=== PATIENT | female | born 1935 | race Caucasian/White ===

== ENCOUNTER 2018-11-10 18:47 | Emergency (ER) | payer MEDICARE ==
[~2018-11-10] VITALS: Ht 165.1 cm; Wt 72.7 kg
[2018-11-10] MEDS ORDERED: QUET25TA PO (19:59)
[2018-11-10] MEDS ORDERED: SEVEC800 PO (19:59)
[2018-11-10] MEDS ORDERED: ATOR40TA28 PO (20:01)
[2018-11-10] MEDS ORDERED: DILT-39 PO (20:01)
[2018-11-10] MEDS ORDERED: ASPI81 PO (20:01)
[2018-11-10] MEDS ORDERED: ACETAMINOPHEN 325 MG TABLET PO ONE (22:00)
[2018-11-10 23:13] LABS: BASOPHILS % (AUTO) 1.1 % (0.0-2.0); EOSINOPHILS % (AUTO) 2.1 % (1.0-6.0); HEMATOCRIT 36.6 % (36-46); HEMOGLOBIN 11.8 g/dL (12.0-16.0); LYMPHOCYTES # (AUTO) 0.6 K/uL (1.0-4.8); LYMPHOCYTES % (AUTO) 9.3 % (22.0-44.0); MEAN CORPUSCULAR HEMOGLOBIN 29.8 pg (26.0-34.0); MEAN CORPUSCULAR HGB CONC 32.2 G/dL (31.0-37.0); MEAN CORPUSCULAR VOLUME 93 fL (80-100); MONOCYTES # (AUTO) 0.6 K/uL (0.1-1.0); MONOCYTES % (AUTO) 8.3 % (2.0-9.0); NEUTROPHILS # (AUTO) 5.3 K/uL (1.8-7.7); NEUTROPHILS % (AUTO) 79.2 % (40.0-70.0); PLATELET COUNT (AUTO) 168 K/uL (150-450); RED BLOOD CELL COUNT(AUTO) 3.95 MIL/uL (4.00-5.20)
[2018-11-10 23:24] LABS: CALCIUM, TOTAL 9.3 mg/dL (8.8-10.5); CREATININE 3.12 mg/dL (0.60-1.30)
[2018-11-10 23:31] LABS: ALBUMIN 3.6 g/dL (3.4-5.0); BILIRUBIN,TOTAL 0.4 mg/dL (0.1-1.0); TOTAL PROTEIN, SERUM 7.3 g/dL (6.4-8.2)
[2018-11-11 00:22] VITALS: BP 142/54
== END 2018-11-11 01:18 | disposition home or self-care (01) ==
LOC: EMS 18:49
DX: M79.602 Pain in left arm (principal); N18.6 End stage renal disease; I50.9 Heart failure, unspecified; F20.9 Schizophrenia, unspecified; Z79.82 Long term (current) use of aspirin

== ENCOUNTER 2019-06-20 06:37 | Inpatient (IN) | payer MEDICARE ==
[~2019-06-20] VITALS: Ht 154.9 cm; Wt 44.1 kg
[~2019-06-20 06:37] MED LIST: ASPI81 PO; ATOR40TA28 PO; DILT-39 PO; QUET25TA PO; SEVE800T17 PO
[2019-06-20] MEDS ORDERED: IPRA3AMP24 NEB (06:54)
[2019-06-20] MEDS ORDERED: IPRATROPIUM BROMIDE 0.5 MG/2.5 ML NEB SOLUTION NEB ONE ×2 (06:55→07:00)
[2019-06-20] MEDS ORDERED: ALBUTEROL SULFATE 2.5 MG/0.5 ML NEB SOLUTION NEB ONE ×2 (06:55→07:00)
[2019-06-20 07:02] LABS: GLUCOSE,POINT OF CARE 119 MG/DL (70-110)
[2019-06-20 07:21] LABS: BASOPHILS % (AUTO) 0.3 % (0.0-2.0); EOSINOPHILS % (AUTO) 0 % (1.0-6.0); HEMATOCRIT 36.1 % (36-46); HEMOGLOBIN 11.9 g/dL (12.0-16.0); LYMPHOCYTES # (AUTO) 0.2 K/uL (1.0-4.8); LYMPHOCYTES % (AUTO) 2.3 % (22.0-44.0); MEAN CORPUSCULAR HEMOGLOBIN 30.7 pg (26.0-34.0); MEAN CORPUSCULAR HGB CONC 33.1 G/dL (31.0-37.0); MEAN CORPUSCULAR VOLUME 93 fL (80-100); MONOCYTES # (AUTO) 0.6 K/uL (0.1-1.0); MONOCYTES % (AUTO) 6.5 % (2.0-9.0); NEUTROPHILS # (AUTO) 8.1 K/uL (1.8-7.7); PLATELET COUNT (AUTO) 100 K/uL (150-450); RED BLOOD CELL COUNT(AUTO) 3.89 MIL/uL (4.00-5.20); RED CELL DISTRIBUTION WIDTH 17.8 % (11.5-14.5)
[2019-06-20 07:22] LABS: NEUTROPHILS % (AUTO) 90.9 % (40.0-70.0)
[2019-06-20 07:27] LABS: CALCIUM, TOTAL 9.4 mg/dL (8.8-10.5); CREATININE 4.7 mg/dL (0.60-1.30); POTASSIUM 4.8 mmol/L (3.5-5.1)
[2019-06-20 07:28] LABS: INR 1.2 (0.9-1.1); PROTHROMBIN TIME 12.1 SEC (9.4-11.6)
[2019-06-20] MEDS ORDERED: AZITHROMYCIN 500 MG/NS 250 ML IV ONE (07:45)
[2019-06-20] MEDS ORDERED: NITROGLYCERIN 2% (1 GM=INCH) PACKET TP ONE (07:45)
[2019-06-20] MEDS ORDERED: CefTRIAXone 1 GM/DEXTROSE 50 ML IV ONE (07:45)
[2019-06-20 07:52] LABS: BILIRUBIN,TOTAL 0.6 mg/dL (0.1-1.0); TOTAL PROTEIN, SERUM 8.3 g/dL (6.4-8.2)
[2019-06-20] MEDS ORDERED: MethylPREDNISolone SOD SUCC 125 MG/2 ML VIAL IVP ONE (08:30)
[2019-06-20 08:37] LABS: INFLUENZA TYPE A NEGATIVE FOR TYPE A (NEGATIVE); INFLUENZA TYPE B NEGATIVE FOR TYPE B (NEGATIVE)
[2019-06-20 08:43] LABS: ABG A-A DIFF O2 142.8 mmHg (10-20.0); ABG BASE EXCESS -0.7 mmol/L (-2.0-3.0); ABG HCO3 23.1 mmol/L (22.0-26.0); ABG METHEMOGLOBIN 0.2 % (0.0-1.5); ABG OXYGEN CONTENT 15.2 mL/dL (15.0-23.0); ABG OXYHEMOGLOBIN 91.9 % (94.0-100.0); ABG PCO2 60 mmHg (35-45); ABG PH 7.261 (7.35-7.450); ABG TOTAL HEMOGLOBIN 11.7 G/dL (12.0-18.0); PO2, ARTERIAL BG 73.7 mmHg (71.0-79.0); SOURCE, BLOOD GAS ARTERIAL; TEMPERATURE, FAHRENHEIT, BG 98.5 FAHREN (96.0-98.6)
[2019-06-20 08:44] LABS: INSPIRATORY TIME, BG 1 SEC; O2 DEVICE,BLOOD GAS BIPAP (ROOM AIR); SITE, BLOOD GAS RT RADIAL; SPONTANEOUS VT, BG 410 ml
[2019-06-20] MEDS ORDERED: 0.9% SODIUM CHLORIDE 10 ML SYRINGE IVP PRN (09:00)
[2019-06-20] MEDS ORDERED: ACETAMINOPHEN 325 MG TABLET PO PRN ×2 (09:00→12:00)
[2019-06-20 10:05] LABS: ABG TOTAL HEMOGLOBIN 11.8 G/dL (12.0-18.0); SOURCE, BLOOD GAS ARTERIAL; TEMPERATURE, FAHRENHEIT, BG 98.5 FAHREN (96.0-98.6)
[2019-06-20 10:09] LABS: ABG A-A DIFF O2 146.6 mmHg (10-20.0); ABG BASE EXCESS -1.7 mmol/L (-2.0-3.0); ABG HCO3 22.5 mmol/L (22.0-26.0); ABG METHEMOGLOBIN 0.3 % (0.0-1.5); ABG OXYGEN CONTENT 15.4 mL/dL (15.0-23.0); ABG OXYGEN SATURATION 93.6 % (95.0-98.0); ABG OXYHEMOGLOBIN 92.4 % (94.0-100.0); ABG PCO2 54 mmHg (35-45); ABG PH 7.281 (7.35-7.450); PO2, ARTERIAL BG 76.2 mmHg (71.0-79.0)
[2019-06-20 10:15] LABS: O2 DEVICE,BLOOD GAS BIPAP (ROOM AIR); SITE, BLOOD GAS RT RADIAL
[2019-06-20 10:16] LABS: INSPIRATORY TIME, BG 1 SEC; SPONTANEOUS VT, BG 760 ml
[2019-06-20 11:40] VITALS: BP 133/89
[2019-06-20] MEDS ORDERED: IPRATROPIUM BROMIDE 0.5 MG/2.5 ML NEB SOLUTION NEB PRN ×2 (12:00→15:15)
[2019-06-20] MEDS ORDERED: DILT90SR PO (12:00)
[2019-06-20] MEDS ORDERED: MAGNESIUM HYDROXIDE SUSPENSION 30 ML UDCUP PO PRN (12:00)
[2019-06-20] MEDS ORDERED: MORPHINE SULFATE 2 MG/ML SYRINGE IVP PRN (12:00)
[2019-06-20] MEDS ORDERED: ALBUTEROL SULFATE 2.5 MG/0.5 ML NEB SOLUTION NEB PRN ×4 (12:00→17:45)
[2019-06-20] MEDS ORDERED: ONDANSETRON HCL 4 MG/2 ML VIAL IVP PRN (12:00)
[2019-06-20] MEDS ORDERED: BISACODYL 10 MG RECTAL RECTAL SUPPOSITORY PR PRN (12:00)
[2019-06-20] MEDS ORDERED: HYDROCODONE/ACETAMINOPHEN 5-325 MG TABLET PO PRN (12:00)
[2019-06-20] MEDS ORDERED: ZOLPIDEM TARTRATE 5 MG TABLET PO PRN (12:00)
[2019-06-20 14:22] LABS: ABG BASE EXCESS -2.3 mmol/L (-2.0-3.0); ABG HCO3 21.9 mmol/L (22.0-26.0); ABG METHEMOGLOBIN 0.3 % (0.0-1.5); ABG OXYGEN CONTENT 16.5 mL/dL (15.0-23.0); ABG OXYGEN SATURATION 96.1 % (95.0-98.0); ABG OXYHEMOGLOBIN 94.9 % (94.0-100.0); ABG PCO2 56 mmHg (35-45); ABG PH 7.261 (7.35-7.450); ABG TOTAL HEMOGLOBIN 12.3 G/dL (12.0-18.0); SOURCE, BLOOD GAS ARTERIAL
[2019-06-20 14:32] LABS: O2 DEVICE,BLOOD GAS BIPAP (ROOM AIR); SITE, BLOOD GAS RT RADIAL
[2019-06-20 14:33] LABS: INSPIRATORY TIME, BG 1 SEC; SPONTANEOUS VT, BG 440 ml
[2019-06-20 16:43] VITALS: BP 136/85
[2019-06-20] MEDS: SEVELAMER CARBONATE 800 MG TABLET PO SCH (18:00)
[2019-06-20] MEDS ORDERED: IPRATROPIUM BROMIDE 0.5 MG/2.5 ML NEB SOLUTION NEB SCH (19:00)
[2019-06-20] MEDS: IPRATROPIUM BROMIDE 0.5 MG/2.5 ML NEB SOLUTION NEB SCH ×4 (19:15→23:15)
[2019-06-20] MEDS: ALBUTEROL SULFATE 2.5 MG/0.5 ML NEB SOLUTION NEB SCH ×2 (19:40→22:52)
[2019-06-20 19:50] VITALS: BP 155/86
[2019-06-20] MEDS: HEPARIN SODIUM,PORCINE 5,000 UNITS/ML VIAL SQ SCH (20:41)
[2019-06-20] MEDS: MethylPREDNISolone SOD SUCC 125 MG/2 ML VIAL IVP SCH (20:41)
[2019-06-20] MEDS ORDERED: DILTIAZEM HCL 90 MG SR CAPSULE PO SCH ×2 (21:00→22:39)
[2019-06-20] MEDS: DOCUSATE SODIUM 100 MG CAPSULE PO SCH (21:00)
[2019-06-20] MEDS: DILTIAZEM HCL 30 MG TABLET PO SCH (22:55)
[2019-06-20 23:30] VITALS: BP 142/84
[2019-06-21] MEDS: MethylPREDNISolone SOD SUCC 125 MG/2 ML VIAL IVP SCH ×5 (01:12→23:21)
[2019-06-21] MEDS: IPRATROPIUM BROMIDE 0.5 MG/2.5 ML NEB SOLUTION NEB SCH ×10 (03:15→23:24)
[2019-06-21] MEDS: ALBUTEROL SULFATE 2.5 MG/0.5 ML NEB SOLUTION NEB SCH ×6 (03:20→23:24)
[2019-06-21 03:31] VITALS: BP 136/70
[2019-06-21] MEDS ORDERED: SODIUM CHLORIDE 0.9% 100 ML ONE (04:57)
[2019-06-21 07:02] LABS: EOSINOPHILS % (AUTO) 0 % (1.0-6.0); HEMATOCRIT 35.9 % (36-46); HEMOGLOBIN 11.8 g/dL (12.0-16.0); LYMPHOCYTES # (AUTO) 0.2 K/uL (1.0-4.8); MEAN CORPUSCULAR HEMOGLOBIN 30.5 pg (26.0-34.0); MEAN CORPUSCULAR VOLUME 93 fL (80-100); MONOCYTES # (AUTO) 0.3 K/uL (0.1-1.0); MONOCYTES % (AUTO) 2.4 % (2.0-9.0); NEUTROPHILS # (AUTO) 9.9 K/uL (1.8-7.7); PLATELET COUNT (AUTO) 102 K/uL (150-450); RED BLOOD CELL COUNT(AUTO) 3.88 MIL/uL (4.00-5.20); RED CELL DISTRIBUTION WIDTH 17.9 % (11.5-14.5)
[2019-06-21 07:04] LABS: NEUTROPHILS % (AUTO) 95.6 % (40.0-70.0)
[2019-06-21 07:27] LABS: ALBUMIN 3.6 g/dL (3.4-5.0); BILIRUBIN,TOTAL 0.5 mg/dL (0.1-1.0); CALCIUM, TOTAL 9.5 mg/dL (8.8-10.5); CREATININE 3.05 mg/dL (0.60-1.30); POTASSIUM 4.3 mmol/L (3.5-5.1); TOTAL PROTEIN, SERUM 7.6 g/dL (6.4-8.2)
[2019-06-21 07:35] VITALS: BP 150/90
[2019-06-21] MEDS: PANTOPRAZOLE SODIUM 40 MG DR TABLET PO SCH (08:18)
[2019-06-21] MEDS: SEVELAMER CARBONATE 800 MG TABLET PO SCH ×3 (08:18→17:51)
[2019-06-21] MEDS: ASPIRIN 81 MG CHEWABLE TABLET PO SCH (08:18)
[2019-06-21] MEDS: DOCUSATE SODIUM 100 MG CAPSULE PO SCH ×2 (08:18→20:11)
[2019-06-21] MEDS: ATORVASTATIN CALCIUM 40 MG TABLET PO SCH (08:19)
[2019-06-21] MEDS: DILTIAZEM HCL 30 MG TABLET PO SCH ×2 (08:19→20:10)
[2019-06-21] MEDS: CefTRIAXone 1 GM/DEXTROSE 50 ML IV SCH (08:20)
[2019-06-21] MEDS: HEPARIN SODIUM,PORCINE 5,000 UNITS/ML VIAL SQ SCH ×2 (08:20→20:11)
[2019-06-21] MEDS: VITAMIN B COMP/VIT C/FOLIC ACID CAPSULE PO SCH (10:18)
[2019-06-21 11:15] VITALS: BP 139/79
[2019-06-21] MEDS ORDERED: AMIODARONE HCL 360 MG in DEXTROSE 5%-WATER 242.8 ML IV ONE (13:00)
[2019-06-21] MEDS ORDERED: AMIODARONE HCL 150 MG in DEXTROSE 5%-WATER 97 ML IV ONE (13:00)
[2019-06-21 16:00] VITALS: BP 144/95
[2019-06-21] MEDS ORDERED: AMIODARONE HCL 540 MG in DEXTROSE 5%-WATER 239.2 ML IV ONE (19:00)
[2019-06-21 19:54] VITALS: BP 147/98
[2019-06-22 00:05] VITALS: BP 154/83
[2019-06-22] MEDS: LORazepam 2 MG/ML VIAL IVP PRN ×2 (00:20→14:56)
[2019-06-22] MEDS: IPRATROPIUM BROMIDE 0.5 MG/2.5 ML NEB SOLUTION NEB SCH ×6 (02:09→22:53)
[2019-06-22] MEDS: ALBUTEROL SULFATE 2.5 MG/0.5 ML NEB SOLUTION NEB SCH ×6 (02:09→22:53)
[2019-06-22 05:36] VITALS: BP 141/85
[2019-06-22] MEDS: MethylPREDNISolone SOD SUCC 125 MG/2 ML VIAL IVP SCH (06:27)
[2019-06-22 06:30] LABS: HEMOGLOBIN A1C 5.4 % (4.5-6.2)
[2019-06-22 06:49] LABS: PHOSPHORUS 5.9 mg/dL (2.5-4.9)
[2019-06-22 08:20] VITALS: BP 142/97
[2019-06-22] MEDS: VITAMIN B COMP/VIT C/FOLIC ACID CAPSULE PO SCH (09:00)
[2019-06-22] MEDS: ATORVASTATIN CALCIUM 40 MG TABLET PO SCH (09:00)
[2019-06-22] MEDS: ASPIRIN 81 MG CHEWABLE TABLET PO SCH (09:00)
[2019-06-22] MEDS: PANTOPRAZOLE SODIUM 40 MG DR TABLET PO SCH (09:00)
[2019-06-22] MEDS: DOCUSATE SODIUM 100 MG CAPSULE PO SCH ×3 (09:00→21:31)
[2019-06-22] MEDS: SEVELAMER CARBONATE 800 MG TABLET PO SCH ×3 (09:10→18:00)
[2019-06-22] MEDS: DILTIAZEM HCL 30 MG TABLET PO SCH ×3 (09:11→21:30)
[2019-06-22] MEDS: HEPARIN SODIUM,PORCINE 5,000 UNITS/ML VIAL SQ SCH ×2 (09:11→21:31)
[2019-06-22] MEDS: CefTRIAXone 1 GM/DEXTROSE 50 ML IV SCH (09:26)
[2019-06-22 11:03] VITALS: BP 139/78
[2019-06-22] MEDS ORDERED: AMIODARONE HCL 750 MG in DEXTROSE 5%-WATER 485 ML IV SCH (13:00)
[2019-06-22 15:07] VITALS: BP 160/104
[2019-06-22] MEDS ORDERED: DIGOXIN 250 MCG/ML 2 ML AMP IVP ONE (15:15)
[2019-06-22 19:55] VITALS: BP 158/99
[2019-06-23 00:55] VITALS: BP 148/83
[2019-06-23] MEDS: IPRATROPIUM BROMIDE 0.5 MG/2.5 ML NEB SOLUTION NEB SCH ×6 (02:36→23:53)
[2019-06-23] MEDS: ALBUTEROL SULFATE 2.5 MG/0.5 ML NEB SOLUTION NEB SCH ×6 (02:36→23:53)
[2019-06-23 04:16] VITALS: BP 142/72
[2019-06-23 07:11] LABS: BASOPHILS % (AUTO) 0.5 % (0.0-2.0); EOSINOPHILS % (AUTO) 0 % (1.0-6.0); HEMATOCRIT 34.5 % (36-46); LYMPHOCYTES # (AUTO) 0.2 K/uL (1.0-4.8); LYMPHOCYTES % (AUTO) 1.7 % (22.0-44.0); MEAN CORPUSCULAR HEMOGLOBIN 29.6 pg (26.0-34.0); MEAN CORPUSCULAR HGB CONC 31.8 G/dL (31.0-37.0); MEAN CORPUSCULAR VOLUME 93 fL (80-100); MONOCYTES # (AUTO) 0.6 K/uL (0.1-1.0); MONOCYTES % (AUTO) 4.8 % (2.0-9.0); NEUTROPHILS # (AUTO) 10.9 K/uL (1.8-7.7); PLATELET COUNT (AUTO) 96 K/uL (150-450); RED CELL DISTRIBUTION WIDTH 17.7 % (11.5-14.5)
[2019-06-23 07:38] LABS: CALCIUM, TOTAL 9.3 mg/dL (8.8-10.5); CREATININE 3.04 mg/dL (0.60-1.30); POTASSIUM 4.5 mmol/L (3.5-5.1)
[2019-06-23] MEDS: SEVELAMER CARBONATE 800 MG TABLET PO SCH ×3 (08:00→18:00)
[2019-06-23 08:11] VITALS: BP 147/85
[2019-06-23] MEDS: CefTRIAXone 1 GM/DEXTROSE 50 ML IV SCH (08:25)
[2019-06-23] MEDS: PANTOPRAZOLE SODIUM 40 MG DR TABLET PO SCH (09:00)
[2019-06-23] MEDS: DILTIAZEM HCL 30 MG TABLET PO SCH ×2 (09:00→21:14)
[2019-06-23] MEDS: DOCUSATE SODIUM 100 MG CAPSULE PO SCH ×2 (09:00→21:14)
[2019-06-23] MEDS: VITAMIN B COMP/VIT C/FOLIC ACID CAPSULE PO SCH (09:00)
[2019-06-23] MEDS: HEPARIN SODIUM,PORCINE 5,000 UNITS/ML VIAL SQ SCH ×2 (10:32→21:14)
[2019-06-23] MEDS: ATORVASTATIN CALCIUM 40 MG TABLET PO SCH (10:33)
[2019-06-23] MEDS: ASPIRIN 81 MG CHEWABLE TABLET PO SCH (10:33)
[2019-06-23 12:40] VITALS: BP 143/91
[2019-06-23 16:51] VITALS: BP 158/78
[2019-06-23 20:39] VITALS: BP 149/78
[2019-06-23] MEDS: METOPROLOL TARTRATE 50 MG TABLET PO SCH (21:14)
[2019-06-23] MEDS: APIXABAN 2.5 MG TABLET PO SCH (21:14)
[2019-06-23] MEDS: BENZONATATE 100 MG CAPSULE PO SCH (21:15)
[2019-06-24] VITALS: BP 113/54
[2019-06-24] MEDS: ALBUTEROL SULFATE 2.5 MG/0.5 ML NEB SOLUTION NEB SCH ×4 (03:16→15:41)
[2019-06-24] MEDS: IPRATROPIUM BROMIDE 0.5 MG/2.5 ML NEB SOLUTION NEB SCH ×4 (03:16→15:41)
[2019-06-24 04:14] VITALS: BP 147/67
[2019-06-24] MEDS: SEVELAMER CARBONATE 800 MG TABLET PO SCH ×3 (08:00→18:00)
[2019-06-24 08:15] VITALS: BP 146/64
[2019-06-24] MEDS: ATORVASTATIN CALCIUM 40 MG TABLET PO SCH ×2 (08:52→09:00)
[2019-06-24] MEDS: PANTOPRAZOLE SODIUM 40 MG DR TABLET PO SCH ×2 (08:52→09:00)
[2019-06-24] MEDS: CefTRIAXone 1 GM/DEXTROSE 50 ML IV SCH (08:52)
[2019-06-24] MEDS: METOPROLOL TARTRATE 50 MG TABLET PO SCH (08:52)
[2019-06-24] MEDS: ASPIRIN 81 MG CHEWABLE TABLET PO SCH ×2 (08:53→09:00)
[2019-06-24] MEDS: DOCUSATE SODIUM 100 MG CAPSULE PO SCH (08:53)
[2019-06-24] MEDS: DILTIAZEM HCL 30 MG TABLET PO SCH (08:53)
[2019-06-24] MEDS: APIXABAN 2.5 MG TABLET PO SCH (08:53)
[2019-06-24] MEDS: BENZONATATE 100 MG CAPSULE PO SCH ×2 (08:53→09:00)
[2019-06-24] MEDS: HEPARIN SODIUM,PORCINE 5,000 UNITS/ML VIAL SQ SCH (08:54)
[2019-06-24] MEDS: VITAMIN B COMP/VIT C/FOLIC ACID CAPSULE PO SCH (08:54)
[2019-06-24] MEDS ORDERED: SODIUM CHLORIDE 0.9% 100 ML ONE (08:57)
[2019-06-24 11:56] VITALS: BP 123/72
[2019-06-24 16:01] VITALS: BP 152/69
== END 2019-06-24 19:00 | DRG 291 ==
LOC: EMS 06:38 → 5N 08:34
PROVIDERS: ADMIT Hospitalist; ATTEND Hospitalist
PROC: 5A09357 Assistance with Respiratory Ventilation, Less than 24 Consecutive Hours, Continuous Positive Airway Pressure (ICD-10-PCS; principal; 2019-06-20)
PROC: 5A1D70Z Performance of Urinary Filtration, Intermittent, Less than 6 Hours Per Day (ICD-10-PCS; 2019-06-20)
PROC: 5A1D70Z Performance of Urinary Filtration, Intermittent, Less than 6 Hours Per Day (ICD-10-PCS; 2019-06-22)
PROC: 5A1D70Z Performance of Urinary Filtration, Intermittent, Less than 6 Hours Per Day (ICD-10-PCS; 2019-06-23)
PROC: 5A1D70Z Performance of Urinary Filtration, Intermittent, Less than 6 Hours Per Day (ICD-10-PCS; 2019-06-24)
DX: I13.2 Hypertensive heart and chronic kidney disease with heart failure and with stage 5 chronic kidney disease, or end stage renal disease (principal); J96.01 Acute respiratory failure with hypoxia; I50.31 Acute diastolic (congestive) heart failure; N18.6 End stage renal disease; E87.2 Acidosis; G93.40 Encephalopathy, unspecified; E87.1 Hypo-osmolality and hyponatremia; J44.1 Chronic obstructive pulmonary disease with (acute) exacerbation; I48.20 Chronic atrial fibrillation, unspecified; Z68.1 Body mass index [BMI] 19.9 or less, adult; D64.9 Anemia, unspecified; E78.5 Hyperlipidemia, unspecified; Z66 Do not resuscitate; D69.6 Thrombocytopenia, unspecified; F20.9 Schizophrenia, unspecified; E11.22 Type 2 diabetes mellitus with diabetic chronic kidney disease; I25.10 Atherosclerotic heart disease of native coronary artery without angina pectoris; F03.90 Unspecified dementia, unspecified severity, without behavioral disturbance, psychotic disturbance, mood disturbance, and anxiety; I08.1 Rheumatic disorders of both mitral and tricuspid valves; R62.7 Adult failure to thrive; Z99.2 Dependence on renal dialysis; Z83.3 Family history of diabetes mellitus; Z82.49 Family history of ischemic heart disease and other diseases of the circulatory system; Z79.82 Long term (current) use of aspirin
CPT/HCPCS: 36600; 82805; 83036; 83605; 83735; 84100; 84145; 87040; 87081; 87340; 87804; 92507; 92526; 92610; 93005; 93306; 94640; 94660; 94799; 99291; J0282; J0456; J0696; J1160; J1644; J2060; J2930; J7050; J7060

== ENCOUNTER 2019-11-07 19:26 | Inpatient (IN) | payer MEDICARE, MEDICAID ==
[~2019-11-07] VITALS: Ht 127 cm; Wt 32.1 kg
[~2019-11-07 19:26] MED LIST changes: +ASPI-728 PO; -ASPI81 PO; -DILT-39 PO; +DILT90SR PO; +IPRA3AMP24 NEB
[2019-11-07 20:23] LABS: BASOPHILS % (AUTO) 0.5 % (0.0-2.0); EOSINOPHILS % (AUTO) 0.6 % (1.0-6.0); HEMATOCRIT 34.5 % (36-46); HEMOGLOBIN 11.2 g/dL (12.0-16.0); LYMPHOCYTES # (AUTO) 0.9 K/uL (1.0-4.8); LYMPHOCYTES % (AUTO) 11.7 % (22.0-44.0); MEAN CORPUSCULAR HEMOGLOBIN 32.6 pg (26.0-34.0); MEAN CORPUSCULAR HGB CONC 32.5 G/dL (31.0-37.0); MEAN CORPUSCULAR VOLUME 100 fL (80-100); MONOCYTES # (AUTO) 0.5 K/uL (0.1-1.0); MONOCYTES % (AUTO) 6.7 % (2.0-9.0); NEUTROPHILS # (AUTO) 6.4 K/uL (1.8-7.7); NEUTROPHILS % (AUTO) 80.5 % (40.0-70.0); PLATELET COUNT (AUTO) 117 K/uL (150-450); RED BLOOD CELL COUNT(AUTO) 3.44 MIL/uL (4.00-5.20); RED CELL DISTRIBUTION WIDTH 15.2 % (11.5-14.5)
[2019-11-07 20:29] LABS: CALCIUM, TOTAL 9.9 mg/dL (8.8-10.5); CREATININE 5.21 mg/dL (0.60-1.30); POTASSIUM 5.8 mmol/L (3.5-5.1)
[2019-11-07] MEDS ORDERED: DILTIAZEM HCL 5 MG/ML 5 ML VIAL IVP ONE (20:30)
[2019-11-07] MEDS ORDERED: ALBUTEROL SULFATE HFA 90 MCG/PUFF 8 GM INHALER IH ONE (20:30)
[2019-11-07] MEDS ORDERED: MethylPREDNISolone SOD SUCC 125 MG/2 ML VIAL IVP ONE (20:30)
[2019-11-07 20:31] LABS: INR 1.2 (0.9-1.1); PROTHROMBIN TIME 11.8 SEC (9.4-11.6)
[2019-11-07] MEDS ORDERED: ASPI-556 PO (20:59)
[2019-11-07] MEDS ORDERED: SEVE0.8P6 PO (20:59)
[2019-11-07] MEDS ORDERED: ACET-784 PO (20:59)
[2019-11-07] MEDS ORDERED: APIX2.5T PO (20:59)
[2019-11-07] MEDS ORDERED: ALBU8HFA IH (20:59)
[2019-11-07] MEDS ORDERED: DOCU-275 PO (20:59)
[2019-11-07] MEDS ORDERED: B CO1CAP6 PO (20:59)
[2019-11-07] MEDS ORDERED: PANT40TA25 PO (20:59)
[2019-11-07] MEDS ORDERED: IPRAHFA IH (20:59)
[2019-11-07 21:06] LABS: ALBUMIN 4.1 g/dL (3.4-5.0); BILIRUBIN,TOTAL 0.4 mg/dL (0.1-1.0); TOTAL PROTEIN, SERUM 8.3 g/dL (6.4-8.2)
[2019-11-07] MEDS ORDERED: DILTIAZEM HCL 60 MG SR CAPSULE PO ONE (21:15)
[2019-11-07] MEDS ORDERED: ACETAMINOPHEN 325 MG TABLET PO PRN (21:45)
[2019-11-07] MEDS ORDERED: ONDANSETRON HCL 4 MG/2 ML VIAL IVP PRN (21:45)
[2019-11-07] MEDS ORDERED: 0.9% SODIUM CHLORIDE 10 ML SYRINGE IVP PRN (21:45)
[2019-11-07 22:08] LABS: GLUCOMETER DEV NAME(LOC) AHU.; GLUCOSE,POINT OF CARE 239 MG/DL (70-110)
[2019-11-07 22:11] LABS: INFLUENZA TYPE A NEGATIVE FOR TYPE A (NEGATIVE)
[2019-11-07 22:12] LABS: INFLUENZA TYPE B NEGATIVE FOR TYPE B (NEGATIVE)
[2019-11-07 23:16] VITALS: BP 122/78
[2019-11-08] MEDS ORDERED: DIGOXIN 250 MCG/ML 2 ML AMP IVP ONE (03:30)
[2019-11-08 07:14] LABS: BASOPHILS % (AUTO) 0.1 % (0.0-2.0); EOSINOPHILS % (AUTO) 0 % (1.0-6.0); HEMATOCRIT 34.7 % (36-46); HEMOGLOBIN 11.4 g/dL (12.0-16.0); LYMPHOCYTES # (AUTO) 0.3 K/uL (1.0-4.8); LYMPHOCYTES % (AUTO) 4.5 % (22.0-44.0); MEAN CORPUSCULAR HEMOGLOBIN 32.8 pg (26.0-34.0); MEAN CORPUSCULAR HGB CONC 32.7 G/dL (31.0-37.0); MEAN CORPUSCULAR VOLUME 100 fL (80-100); MONOCYTES # (AUTO) 0.1 K/uL (0.1-1.0); MONOCYTES % (AUTO) 1.4 % (2.0-9.0); NEUTROPHILS # (AUTO) 6.7 K/uL (1.8-7.7); PLATELET COUNT (AUTO) 102 K/uL (150-450); RED BLOOD CELL COUNT(AUTO) 3.46 MIL/uL (4.00-5.20)
[2019-11-08 07:40] LABS: BILIRUBIN,TOTAL 0.7 mg/dL (0.1-1.0); CALCIUM, TOTAL 9.3 mg/dL (8.8-10.5); CREATININE 6.06 mg/dL (0.60-1.30); TOTAL PROTEIN, SERUM 8.3 g/dL (6.4-8.2)
[2019-11-08 07:44] LABS: POTASSIUM 6.9 mmol/L (3.5-5.1)
[2019-11-08 09:11] VITALS: BP 126/82
[2019-11-08] MEDS ORDERED: IOVERSOL 350 MG/ML 100 ML VIAL ONE (12:06)
[2019-11-08] MEDS ORDERED: SODIUM CHLORIDE 0.9% 100 ML ONE (12:07)
[2019-11-08 12:54] VITALS: BP 120/80
[2019-11-08] MEDS ORDERED: ONDANSETRON HCL 4 MG/2 ML VIAL IVP PRN (14:00)
[2019-11-08] MEDS ORDERED: ACETAMINOPHEN 325 MG TABLET PO PRN (14:00)
[2019-11-08 17:15] VITALS: BP 122/84
[2019-11-08] MEDS ORDERED: SEVELAMER CARBONATE 800 MG TABLET PO SCH (18:00)
[2019-11-08 20:09] VITALS: BP 125/70
[2019-11-08] MEDS: APIXABAN 2.5 MG TABLET PO SCH (21:47)
[2019-11-08] MEDS: DOCUSATE SODIUM 100 MG CAPSULE PO SCH (21:47)
[2019-11-08] MEDS: ATORVASTATIN CALCIUM 40 MG TABLET PO SCH (21:48)
[2019-11-09] VITALS (7 sets, daily range): BP systolic 104–153; BP diastolic 69–90
[2019-11-09 08:28] LABS: BASOPHILS % (AUTO) 0.2 % (0.0-2.0); EOSINOPHILS % (AUTO) 0 % (1.0-6.0); HEMOGLOBIN 11.1 g/dL (12.0-16.0); LYMPHOCYTES # (AUTO) 0.6 K/uL (1.0-4.8); LYMPHOCYTES % (AUTO) 6.6 % (22.0-44.0); MEAN CORPUSCULAR HEMOGLOBIN 32.7 pg (26.0-34.0); MEAN CORPUSCULAR HGB CONC 32.5 G/dL (31.0-37.0); MEAN CORPUSCULAR VOLUME 100 fL (80-100); MONOCYTES # (AUTO) 0.6 K/uL (0.1-1.0); MONOCYTES % (AUTO) 6.3 % (2.0-9.0); NEUTROPHILS # (AUTO) 8.2 K/uL (1.8-7.7); PLATELET COUNT (AUTO) 98 K/uL (150-450); RED BLOOD CELL COUNT(AUTO) 3.38 MIL/uL (4.00-5.20); RED CELL DISTRIBUTION WIDTH 15.1 % (11.5-14.5)
[2019-11-09 08:35] LABS: NEUTROPHILS % (AUTO) 86.9 % (40.0-70.0)
[2019-11-09] MEDS: APIXABAN 2.5 MG TABLET PO SCH ×2 (09:23→20:14)
[2019-11-09] MEDS: ASPIRIN 81 MG CHEWABLE TABLET PO SCH (09:23)
[2019-11-09] MEDS: PANTOPRAZOLE SODIUM 40 MG DR TABLET PO SCH (09:23)
[2019-11-09] MEDS: DOCUSATE SODIUM 100 MG CAPSULE PO SCH ×2 (09:23→20:14)
[2019-11-09] MEDS: VITAMIN B COMP/VIT C/FOLIC ACID CAPSULE PO SCH (09:23)
[2019-11-09 10:09] LABS: CALCIUM, TOTAL 9.2 mg/dL (8.8-10.5); CREATININE 3.95 mg/dL (0.60-1.30); POTASSIUM 4.7 mmol/L (3.5-5.1)
[2019-11-09] MEDS ORDERED: ALBUTEROL SULFATE/IPRATROPIUM 100-20 MCG/SPRAY 4 GM INHALER IH PRN (10:45)
[2019-11-09] MEDS ORDERED: AMIODARONE HCL 360 MG in DEXTROSE 5%-WATER 242.8 ML IV ONE (11:00)
[2019-11-09] MEDS ORDERED: AMIODARONE HCL 150 MG in DEXTROSE 5%-WATER 97 ML IV ONE (11:00)
[2019-11-09] MEDS ORDERED: VANCOMYCIN HCL 1 GM/D5% WATER 200 ML IV PRN (11:00)
[2019-11-09 11:13] LABS: ABG A-A DIFF O2 38.1 mmHg (10-20.0); ABG BASE EXCESS -6.1 mmol/L (-2.0-3.0); ABG CARBOXYHEMOGLOBIN 0.2 % (0.0-1.5); ABG HCO3 18.8 mmol/L (22.0-26.0); ABG METHEMOGLOBIN 0.3 % (0.0-1.5); ABG OXYGEN CONTENT 16.4 mL/dL (15.0-23.0); ABG OXYGEN SATURATION 97.9 % (95.0-98.0); ABG OXYHEMOGLOBIN 97.4 % (94.0-100.0); ABG TOTAL HEMOGLOBIN 11.8 G/dL (12.0-18.0); PO2, ARTERIAL BG 137.7 mmHg (71.0-79.0); SOURCE, BLOOD GAS ARTERIAL; TEMPERATURE, FAHRENHEIT, BG 98.6 FAHREN (96.0-98.6)
[2019-11-09 11:14] LABS: ABG PCO2 70 mmHg (35-45); ABG PH 7.136 (7.35-7.450); O2 DEVICE,BLOOD GAS CANNULA (ROOM AIR); SITE, BLOOD GAS RT RADIAL
[2019-11-09] MEDS ORDERED: VANCOMYCIN HCL 1 GM/D5% WATER 200 ML IV ONE (12:00)
[2019-11-09] MEDS ORDERED: PIPERACILLIN SODIUM/TAZOBACTAM 2.25 GM in DEXTROSE 5%-WATER 50 ML IV SCH (13:00)
[2019-11-09] MEDS: PIPERACILLIN SODIUM/TAZOBACTAM 2.25 GM in DEXTROSE 5%-WATER 50 ML IV SCH ×2 (13:21→20:15)
[2019-11-09] MEDS: SEVELAMER CARBONATE 800 MG POWDER PACKET PO SCH ×2 (13:25→18:20)
[2019-11-09 13:56] LABS: ABG A-A DIFF O2 143.7 mmHg (10-20.0); ABG CARBOXYHEMOGLOBIN 0.3 % (0.0-1.5); ABG HCO3 19.7 mmol/L (22.0-26.0); ABG METHEMOGLOBIN 0.3 % (0.0-1.5); ABG OXYGEN CONTENT 11.8 mL/dL (15.0-23.0); ABG OXYHEMOGLOBIN 73.3 % (94.0-100.0); ABG PCO2 53 mmHg (35-45); ABG PH 7.244 (7.35-7.450); ABG TOTAL HEMOGLOBIN 11.4 G/dL (12.0-18.0); PO2, ARTERIAL BG 44.6 mmHg (71.0-79.0); SOURCE, BLOOD GAS ARTERIAL; TEMPERATURE, FAHRENHEIT, BG 98.6 FAHREN (96.0-98.6)
[2019-11-09 13:57] LABS: ABG OXYGEN SATURATION 73.7 % (95.0-98.0); SITE, BLOOD GAS RT RADIAL
[2019-11-09 13:58] LABS: O2 DEVICE,BLOOD GAS CANNULA (ROOM AIR)
[2019-11-09] MEDS: ALBUTEROL SULFATE/IPRATROPIUM 100-20 MCG/SPRAY 4 GM INHALER IH SCH ×2 (14:56→20:13)
[2019-11-09] MEDS ORDERED: AMIODARONE HCL 540 MG in DEXTROSE 5%-WATER 239.2 ML IV ONE (17:00)
[2019-11-09] MEDS: ATORVASTATIN CALCIUM 40 MG TABLET PO SCH (20:14)
[2019-11-10 00:16] VITALS: BP 112/70
[2019-11-10] MEDS: ALBUTEROL SULFATE/IPRATROPIUM 100-20 MCG/SPRAY 4 GM INHALER IH SCH ×4 (01:44→19:55)
[2019-11-10 04:01] VITALS: BP 120/60
[2019-11-10] MEDS: PIPERACILLIN SODIUM/TAZOBACTAM 2.25 GM in DEXTROSE 5%-WATER 50 ML IV SCH ×3 (04:44→20:11)
[2019-11-10 06:54] LABS: EOSINOPHILS % (AUTO) 0 % (1.0-6.0); HEMATOCRIT 32.6 % (36-46); HEMOGLOBIN 10.7 g/dL (12.0-16.0); LYMPHOCYTES # (AUTO) 0.5 K/uL (1.0-4.8); LYMPHOCYTES % (AUTO) 5.1 % (22.0-44.0); MEAN CORPUSCULAR HEMOGLOBIN 32.9 pg (26.0-34.0); MEAN CORPUSCULAR HGB CONC 32.9 G/dL (31.0-37.0); MEAN CORPUSCULAR VOLUME 100 fL (80-100); MONOCYTES # (AUTO) 0.7 K/uL (0.1-1.0); NEUTROPHILS # (AUTO) 9.1 K/uL (1.8-7.7); PLATELET COUNT (AUTO) 89 K/uL (150-450); RED BLOOD CELL COUNT(AUTO) 3.26 MIL/uL (4.00-5.20); RED CELL DISTRIBUTION WIDTH 15.2 % (11.5-14.5)
[2019-11-10 06:56] LABS: NEUTROPHILS % (AUTO) 87.9 % (40.0-70.0)
[2019-11-10 07:07] LABS: CALCIUM, TOTAL 9.2 mg/dL (8.8-10.5); CREATININE 4.35 mg/dL (0.60-1.30); POTASSIUM 5.3 mmol/L (3.5-5.1)
[2019-11-10 07:58] VITALS: BP 144/68
[2019-11-10] MEDS: SEVELAMER CARBONATE 800 MG POWDER PACKET PO SCH ×4 (08:00→20:14)
[2019-11-10] MEDS: VITAMIN B COMP/VIT C/FOLIC ACID CAPSULE PO SCH (09:00)
[2019-11-10] MEDS: APIXABAN 2.5 MG TABLET PO SCH ×2 (09:00→20:13)
[2019-11-10] MEDS: PANTOPRAZOLE SODIUM 40 MG DR TABLET PO SCH (09:00)
[2019-11-10] MEDS: DOCUSATE SODIUM 100 MG CAPSULE PO SCH ×2 (09:00→20:13)
[2019-11-10] MEDS: ASPIRIN 81 MG CHEWABLE TABLET PO SCH (09:00)
[2019-11-10] MEDS: -POST HEMODIALYSIS NOTE- MISC SCH (09:00)
[2019-11-10 10:50] VITALS: BP 139/90
[2019-11-10] MEDS ORDERED: AMIODARONE HCL 750 MG in DEXTROSE 5%-WATER 485 ML IV SCH (11:00)
[2019-11-10] MEDS ORDERED: SODIUM CHLORIDE 0.9% 2,000 ML ONE (11:43)
[2019-11-10] MEDS ORDERED: DOXERCALCIFEROL 4 MCG/2 ML VIAL IVP PRN (12:15)
[2019-11-10] MEDS ORDERED: LIDOCAINE/PF 1% 2 ML VIAL IM ONE (12:37)
[2019-11-10] MEDS ORDERED: DIGOXIN 250 MCG/ML 2 ML AMP IVP ONE ×2 (13:15→16:15)
[2019-11-10 15:50] VITALS: BP 139/87
[2019-11-10 19:50] VITALS: BP 140/68
[2019-11-10] MEDS: ATORVASTATIN CALCIUM 40 MG TABLET PO SCH (20:13)
[2019-11-11 00:09] VITALS: BP 128/55
[2019-11-11] MEDS: ALBUTEROL SULFATE/IPRATROPIUM 100-20 MCG/SPRAY 4 GM INHALER IH SCH ×4 (02:47→19:51)
[2019-11-11 04:01] VITALS: BP 130/78
[2019-11-11] MEDS: PIPERACILLIN SODIUM/TAZOBACTAM 2.25 GM in DEXTROSE 5%-WATER 50 ML IV SCH ×3 (05:24→21:06)
[2019-11-11 07:19] VITALS: BP 139/72
[2019-11-11] MEDS: -POST HEMODIALYSIS NOTE- MISC SCH (09:00)
[2019-11-11] MEDS ORDERED: PENTETATE DTPA TC99M/MCL ISOTOPE 1 EA INJ INJ ONE (09:05)
[2019-11-11] MEDS ORDERED: MAA ALBUMIN AGGREGATED TC99M/UD<10MCL ISOTOPE 1 EA INJ INJ ONE (09:20)
[2019-11-11] MEDS: SEVELAMER CARBONATE 800 MG POWDER PACKET PO SCH ×3 (09:49→17:38)
[2019-11-11] MEDS: ASPIRIN 81 MG CHEWABLE TABLET PO SCH (09:50)
[2019-11-11] MEDS: APIXABAN 2.5 MG TABLET PO SCH ×2 (09:50→21:05)
[2019-11-11] MEDS: VITAMIN B COMP/VIT C/FOLIC ACID CAPSULE PO SCH (09:50)
[2019-11-11] MEDS: PANTOPRAZOLE SODIUM 40 MG DR TABLET PO SCH (09:50)
[2019-11-11] MEDS: DOCUSATE SODIUM 100 MG CAPSULE PO SCH ×2 (09:51→21:05)
[2019-11-11 11:27] VITALS: BP 121/64
[2019-11-11] MEDS ORDERED: VANCOMYCIN HCL 500 MG in DEXTROSE 5%-WATER 100 ML IV ONE (13:00)
[2019-11-11] MEDS: METOPROLOL SUCCINATE 50 MG ER TABLET PO SCH (14:39)
[2019-11-11 15:35] VITALS: BP 127/70
[2019-11-11 20:06] VITALS: BP 114/58
[2019-11-11] MEDS: ATORVASTATIN CALCIUM 40 MG TABLET PO SCH (21:06)
[2019-11-12 00:17] VITALS: BP 105/52
[2019-11-12] MEDS: ALBUTEROL SULFATE/IPRATROPIUM 100-20 MCG/SPRAY 4 GM INHALER IH SCH ×4 (02:13→20:49)
[2019-11-12 04:02] VITALS: BP 125/57
[2019-11-12] MEDS: PIPERACILLIN SODIUM/TAZOBACTAM 2.25 GM in DEXTROSE 5%-WATER 50 ML IV SCH ×3 (05:23→21:05)
[2019-11-12 07:57] VITALS: BP 130/62
[2019-11-12 08:14] LABS: CALCIUM, TOTAL 9.5 mg/dL (8.8-10.5); CREATININE 4.41 mg/dL (0.60-1.30); POTASSIUM 4.5 mmol/L (3.5-5.1)
[2019-11-12 08:34] LABS: BASOPHILS % (AUTO) 0.1 % (0.0-2.0); EOSINOPHILS % (AUTO) 0.8 % (1.0-6.0); HEMATOCRIT 35.3 % (36-46); HEMOGLOBIN 11.4 g/dL (12.0-16.0); LYMPHOCYTES # (AUTO) 0.7 K/uL (1.0-4.8); MEAN CORPUSCULAR HEMOGLOBIN 32.4 pg (26.0-34.0); MEAN CORPUSCULAR HGB CONC 32.3 G/dL (31.0-37.0); MEAN CORPUSCULAR VOLUME 100 fL (80-100); MONOCYTES # (AUTO) 0.6 K/uL (0.1-1.0); MONOCYTES % (AUTO) 8.2 % (2.0-9.0); NEUTROPHILS # (AUTO) 5.5 K/uL (1.8-7.7); NEUTROPHILS % (AUTO) 80.9 % (40.0-70.0); PLATELET COUNT (AUTO) 82 K/uL (150-450); RED BLOOD CELL COUNT(AUTO) 3.52 MIL/uL (4.00-5.20); RED CELL DISTRIBUTION WIDTH 15.1 % (11.5-14.5)
[2019-11-12] MEDS: SEVELAMER CARBONATE 800 MG POWDER PACKET PO SCH ×3 (08:35→17:13)
[2019-11-12] MEDS: VITAMIN B COMP/VIT C/FOLIC ACID CAPSULE PO SCH (08:35)
[2019-11-12] MEDS: DOCUSATE SODIUM 100 MG CAPSULE PO SCH ×2 (08:35→22:06)
[2019-11-12] MEDS: APIXABAN 2.5 MG TABLET PO SCH ×2 (08:36→21:00)
[2019-11-12] MEDS: ASPIRIN 81 MG CHEWABLE TABLET PO SCH (08:36)
[2019-11-12] MEDS: PANTOPRAZOLE SODIUM 40 MG DR TABLET PO SCH (08:36)
[2019-11-12] MEDS: METOPROLOL SUCCINATE 50 MG ER TABLET PO SCH (09:00)
[2019-11-12] MEDS ORDERED: LISINOPRIL 5 MG TABLET PO SCH (09:00)
[2019-11-12 11:54] VITALS: BP 109/55
[2019-11-12 13:41] LABS: HEMATOCRIT 33.5 % (36-46); HEMOGLOBIN 10.7 g/dL (12.0-16.0)
[2019-11-12] MEDS ORDERED: SODIUM CHLORIDE 0.9% 1,000 ML ONE (14:37)
[2019-11-12] MEDS: -POST HEMODIALYSIS NOTE- MISC SCH (17:14)
[2019-11-12] MEDS ORDERED: SODIUM CHLORIDE 0.9% 250 ML IV ONE (18:23)
[2019-11-12] MEDS: PIPERACILLIN SODIUM/TAZOBACTAM 0.75 GM in DEXTROSE 5%-WATER 50 ML IV PRN (19:05)
[2019-11-12 19:45] VITALS: BP 111/64
[2019-11-12] MEDS: ATORVASTATIN CALCIUM 40 MG TABLET PO SCH (22:06)
[2019-11-12] MEDS: PANTOPRAZOLE SODIUM 40 MG/VIAL IVP SCH (22:06)
[2019-11-12 23:44] VITALS: BP 110/54
[2019-11-13] MEDS: ALBUTEROL SULFATE/IPRATROPIUM 100-20 MCG/SPRAY 4 GM INHALER IH SCH ×4 (01:47→20:00)
[2019-11-13 04:33] VITALS: BP 134/61
[2019-11-13] MEDS: PIPERACILLIN SODIUM/TAZOBACTAM 2.25 GM in DEXTROSE 5%-WATER 50 ML IV SCH ×3 (05:04→21:36)
[2019-11-13 07:06] VITALS: BP 127/81
[2019-11-13 08:29] LABS: BASOPHILS % (AUTO) 0.2 % (0.0-2.0); EOSINOPHILS % (AUTO) 1.2 % (1.0-6.0); HEMATOCRIT 32.3 % (36-46); HEMOGLOBIN 10.6 g/dL (12.0-16.0); LYMPHOCYTES # (AUTO) 0.5 K/uL (1.0-4.8); LYMPHOCYTES % (AUTO) 8.2 % (22.0-44.0); MEAN CORPUSCULAR VOLUME 100 fL (80-100); MONOCYTES # (AUTO) 0.5 K/uL (0.1-1.0); MONOCYTES % (AUTO) 8.4 % (2.0-9.0); NEUTROPHILS # (AUTO) 4.8 K/uL (1.8-7.7); PLATELET COUNT (AUTO) 90 K/uL (150-450); RED BLOOD CELL COUNT(AUTO) 3.23 MIL/uL (4.00-5.20); RED CELL DISTRIBUTION WIDTH 15.1 % (11.5-14.5)
[2019-11-13] MEDS: VITAMIN B COMP/VIT C/FOLIC ACID CAPSULE PO SCH (08:48)
[2019-11-13] MEDS: METOPROLOL SUCCINATE 50 MG ER TABLET PO SCH (08:48)
[2019-11-13] MEDS: PANTOPRAZOLE SODIUM 40 MG/VIAL IVP SCH ×2 (08:48→21:36)
[2019-11-13] MEDS: DOCUSATE SODIUM 100 MG CAPSULE PO SCH ×2 (08:49→21:00)
[2019-11-13] MEDS: ASPIRIN 81 MG CHEWABLE TABLET PO SCH (08:49)
[2019-11-13] MEDS: APIXABAN 2.5 MG TABLET PO SCH (08:49)
[2019-11-13] MEDS: SEVELAMER CARBONATE 800 MG POWDER PACKET PO SCH ×3 (08:49→18:00)
[2019-11-13] MEDS: LISINOPRIL 5 MG TABLET PO SCH (08:49)
[2019-11-13 08:51] LABS: POTASSIUM 3.9 mmol/L (3.5-5.1)
[2019-11-13 08:52] LABS: ALBUMIN 3.2 g/dL (3.4-5.0); BILIRUBIN,TOTAL 0.5 mg/dL (0.1-1.0); CALCIUM, TOTAL 9.4 mg/dL (8.8-10.5); CREATININE 2.91 mg/dL (0.60-1.30); MAGNESIUM 2.4 mg/dL (1.80-2.40); TOTAL PROTEIN, SERUM 6.9 g/dL (6.4-8.2); VANCOMYCIN,RANDOM 16.4 mcg/mL (25.0-50.0)
[2019-11-13] MEDS: -POST HEMODIALYSIS NOTE- MISC SCH (08:57)
[2019-11-13] MEDS ORDERED: VANCOMYCIN HCL 500 MG in DEXTROSE 5%-WATER 100 ML IV ONE (10:00)
[2019-11-13 11:12] VITALS: BP 156/77
[2019-11-13] MEDS ORDERED: PANTOPRAZOLE SODIUM 80 MG in SODIUM CHLORIDE 0.9% 100 ML IV SCH (15:00)
[2019-11-13 15:24] VITALS: BP 124/89
[2019-11-13 16:11] LABS: HEMOGLOBIN 10.9 g/dL (12.0-16.0)
[2019-11-13 19:54] VITALS: BP 119/74
[2019-11-13] MEDS: ATORVASTATIN CALCIUM 40 MG TABLET PO SCH (21:36)
[2019-11-13 22:11] LABS: HEMATOCRIT 31.8 % (36-46); HEMOGLOBIN 10.1 g/dL (12.0-16.0)
[2019-11-13 23:15] VITALS: BP 108/67
[2019-11-14] MEDS: ALBUTEROL SULFATE/IPRATROPIUM 100-20 MCG/SPRAY 4 GM INHALER IH SCH ×4 (01:16→19:42)
[2019-11-14 03:49] VITALS: BP 134/72
[2019-11-14] MEDS: PIPERACILLIN SODIUM/TAZOBACTAM 2.25 GM in DEXTROSE 5%-WATER 50 ML IV SCH ×3 (04:53→21:01)
[2019-11-14 07:42] VITALS: BP 150/78
[2019-11-14 08:00] LABS: BASOPHILS % (AUTO) 0.3 % (0.0-2.0); EOSINOPHILS % (AUTO) 1.9 % (1.0-6.0); HEMATOCRIT 29.9 % (36-46); HEMOGLOBIN 9.8 g/dL (12.0-16.0); LYMPHOCYTES # (AUTO) 0.7 K/uL (1.0-4.8); LYMPHOCYTES % (AUTO) 10.2 % (22.0-44.0); MEAN CORPUSCULAR HEMOGLOBIN 32.9 pg (26.0-34.0); MEAN CORPUSCULAR HGB CONC 32.9 G/dL (31.0-37.0); MEAN CORPUSCULAR VOLUME 100 fL (80-100); MONOCYTES # (AUTO) 0.6 K/uL (0.1-1.0); MONOCYTES % (AUTO) 8.3 % (2.0-9.0); NEUTROPHILS # (AUTO) 5.3 K/uL (1.8-7.7); NEUTROPHILS % (AUTO) 79.3 % (40.0-70.0); PLATELET COUNT (AUTO) 88 K/uL (150-450); RED BLOOD CELL COUNT(AUTO) 2.99 MIL/uL (4.00-5.20); RED CELL DISTRIBUTION WIDTH 15.4 % (11.5-14.5)
[2019-11-14] MEDS: SEVELAMER CARBONATE 800 MG POWDER PACKET PO SCH ×3 (08:00→18:30)
[2019-11-14 08:30] LABS: CREATININE 4.22 mg/dL (0.60-1.30); POTASSIUM 4.2 mmol/L (3.5-5.1)
[2019-11-14 08:31] LABS: ALBUMIN 2.8 g/dL (3.4-5.0); BILIRUBIN,TOTAL 0.6 mg/dL (0.1-1.0); CALCIUM, TOTAL 8.9 mg/dL (8.8-10.5); TOTAL PROTEIN, SERUM 6.4 g/dL (6.4-8.2)
[2019-11-14] MEDS: -POST HEMODIALYSIS NOTE- MISC SCH (09:00)
[2019-11-14] MEDS: VITAMIN B COMP/VIT C/FOLIC ACID CAPSULE PO SCH (09:00)
[2019-11-14] MEDS: LISINOPRIL 5 MG TABLET PO SCH (09:00)
[2019-11-14] MEDS: METOPROLOL SUCCINATE 50 MG ER TABLET PO SCH (09:00)
[2019-11-14] MEDS: DOCUSATE SODIUM 100 MG CAPSULE PO SCH ×2 (09:00→21:01)
[2019-11-14] MEDS: PANTOPRAZOLE SODIUM 40 MG/VIAL IVP SCH ×2 (09:38→21:01)
[2019-11-14] MEDS ORDERED: SODIUM CHLORIDE 0.9% 1,000 ML ONE (10:44)
[2019-11-14] MEDS ORDERED: SODIUM CHLORIDE 0.9% 1,000 ML IV ONE (11:45)
[2019-11-14] MEDS ORDERED: FentaNYL CITRATE-PF 100 MCG/2 ML VIAL ONE (11:54)
[2019-11-14] MEDS ORDERED: MIDAZOLAM HCL 5 MG/ML VIAL ONE (11:54)
[2019-11-14 17:37] VITALS: BP 136/64
[2019-11-14 17:48] LABS: HEMATOCRIT 35.3 % (36-46); HEMOGLOBIN 11.1 g/dL (12.0-16.0)
[2019-11-14 20:19] VITALS: BP 131/81
[2019-11-14] MEDS: ATORVASTATIN CALCIUM 40 MG TABLET PO SCH (21:01)
[2019-11-14 22:19] LABS: HEMATOCRIT 33.2 % (36-46); HEMOGLOBIN 10.5 g/dL (12.0-16.0)
[2019-11-14 23:39] VITALS: BP 120/59
[2019-11-15] MEDS: ALBUTEROL SULFATE/IPRATROPIUM 100-20 MCG/SPRAY 4 GM INHALER IH SCH ×4 (02:42→19:49)
[2019-11-15 03:47] VITALS: BP 132/71
[2019-11-15] MEDS: PIPERACILLIN SODIUM/TAZOBACTAM 2.25 GM in DEXTROSE 5%-WATER 50 ML IV SCH ×3 (05:22→22:01)
[2019-11-15 08:00] VITALS: BP 138/56
[2019-11-15] MEDS: SEVELAMER CARBONATE 800 MG POWDER PACKET PO SCH ×3 (08:47→18:25)
[2019-11-15] MEDS: VITAMIN B COMP/VIT C/FOLIC ACID CAPSULE PO SCH (08:52)
[2019-11-15] MEDS: PANTOPRAZOLE SODIUM 40 MG/VIAL IVP SCH ×2 (08:52→22:02)
[2019-11-15] MEDS: DOCUSATE SODIUM 100 MG CAPSULE PO SCH ×2 (08:52→22:01)
[2019-11-15] MEDS: -POST HEMODIALYSIS NOTE- MISC SCH (09:00)
[2019-11-15 10:47] LABS: BASOPHILS % (AUTO) 0.3 % (0.0-2.0); EOSINOPHILS % (AUTO) 1.1 % (1.0-6.0); HEMATOCRIT 29.4 % (36-46); HEMOGLOBIN 9.6 g/dL (12.0-16.0); LYMPHOCYTES # (AUTO) 0.5 K/uL (1.0-4.8); LYMPHOCYTES % (AUTO) 7.3 % (22.0-44.0); MEAN CORPUSCULAR HEMOGLOBIN 32.5 pg (26.0-34.0); MEAN CORPUSCULAR HGB CONC 32.6 G/dL (31.0-37.0); MEAN CORPUSCULAR VOLUME 100 fL (80-100); MONOCYTES # (AUTO) 0.4 K/uL (0.1-1.0); NEUTROPHILS # (AUTO) 6.4 K/uL (1.8-7.7); PLATELET COUNT (AUTO) 94 K/uL (150-450); RED BLOOD CELL COUNT(AUTO) 2.96 MIL/uL (4.00-5.20); RED CELL DISTRIBUTION WIDTH 15.3 % (11.5-14.5)
[2019-11-15 10:51] LABS: NEUTROPHILS % (AUTO) 85.3 % (40.0-70.0)
[2019-11-15 11:14] LABS: BILIRUBIN,TOTAL 0.5 mg/dL (0.1-1.0); CALCIUM, TOTAL 8.5 mg/dL (8.8-10.5); CREATININE 2.79 mg/dL (0.60-1.30); POTASSIUM 3.3 mmol/L (3.5-5.1); TOTAL PROTEIN, SERUM 6.9 g/dL (6.4-8.2); VANCOMYCIN,RANDOM 14.3 mcg/mL (25.0-50.0)
[2019-11-15] MEDS ORDERED: LIDOCAINE/PF 1% 2 ML VIAL ID PRN (14:00)
[2019-11-15] MEDS ORDERED: VANCOMYCIN HCL 500 MG in DEXTROSE 5%-WATER 100 ML IV ONE (14:00)
[2019-11-15] MEDS ORDERED: MANNITOL 25%-12.5 GM/50 ML VIAL IVP PRN (14:00)
[2019-11-15 14:47] VITALS: BP 133/83
[2019-11-15] MEDS: METOPROLOL SUCCINATE 50 MG ER TABLET PO SCH (14:52)
[2019-11-15] MEDS: LISINOPRIL 5 MG TABLET PO SCH (14:52)
[2019-11-15] MEDS: PIPERACILLIN SODIUM/TAZOBACTAM 0.75 GM in DEXTROSE 5%-WATER 50 ML IV PRN (14:59)
[2019-11-15] MEDS ORDERED: LIDOCAINE/PF 1% 2 ML VIAL ONE (16:48)
[2019-11-15 20:50] LABS: HEMATOCRIT 28.6 % (36-46); HEMOGLOBIN 9.3 g/dL (12.0-16.0)
[2019-11-15 20:58] VITALS: BP 134/82
[2019-11-15] MEDS: ATORVASTATIN CALCIUM 40 MG TABLET PO SCH (22:01)
[2019-11-16] VITALS: BP 135/79
[2019-11-16] MEDS: ALBUTEROL SULFATE/IPRATROPIUM 100-20 MCG/SPRAY 4 GM INHALER IH SCH ×3 (02:05→15:08)
[2019-11-16 04:00] VITALS: BP 153/103
[2019-11-16] MEDS: PIPERACILLIN SODIUM/TAZOBACTAM 2.25 GM in DEXTROSE 5%-WATER 50 ML IV SCH ×2 (04:20→12:28)
[2019-11-16 08:00] VITALS: BP 124/70
[2019-11-16] MEDS: SEVELAMER CARBONATE 800 MG POWDER PACKET PO SCH ×2 (08:03→12:28)
[2019-11-16] MEDS: METOPROLOL SUCCINATE 50 MG ER TABLET PO SCH (08:06)
[2019-11-16] MEDS: LISINOPRIL 5 MG TABLET PO SCH (08:06)
[2019-11-16] MEDS: DOCUSATE SODIUM 100 MG CAPSULE PO SCH (08:06)
[2019-11-16] MEDS: PANTOPRAZOLE SODIUM 40 MG/VIAL IVP SCH (08:06)
[2019-11-16] MEDS: VITAMIN B COMP/VIT C/FOLIC ACID CAPSULE PO SCH (08:06)
[2019-11-16] MEDS: -POST HEMODIALYSIS NOTE- MISC SCH (08:07)
[2019-11-16 09:19] LABS: BASOPHILS % (AUTO) 0.3 % (0.0-2.0); EOSINOPHILS % (AUTO) 1.9 % (1.0-6.0); HEMATOCRIT 29.2 % (36-46); HEMOGLOBIN 9.4 g/dL (12.0-16.0); LYMPHOCYTES # (AUTO) 0.7 K/uL (1.0-4.8); LYMPHOCYTES % (AUTO) 8.4 % (22.0-44.0); MEAN CORPUSCULAR HEMOGLOBIN 32.6 pg (26.0-34.0); MEAN CORPUSCULAR HGB CONC 32.1 G/dL (31.0-37.0); MEAN CORPUSCULAR VOLUME 101 fL (80-100); MONOCYTES # (AUTO) 0.7 K/uL (0.1-1.0); MONOCYTES % (AUTO) 7.3 % (2.0-9.0); NEUTROPHILS # (AUTO) 7.3 K/uL (1.8-7.7); NEUTROPHILS % (AUTO) 82.1 % (40.0-70.0); PLATELET COUNT (AUTO) 87 K/uL (150-450); RED BLOOD CELL COUNT(AUTO) 2.88 MIL/uL (4.00-5.20); RED CELL DISTRIBUTION WIDTH 15.5 % (11.5-14.5)
[2019-11-16 09:36] LABS: ALBUMIN 2.9 g/dL (3.4-5.0); BILIRUBIN,TOTAL 0.7 mg/dL (0.1-1.0); CALCIUM, TOTAL 8.6 mg/dL (8.8-10.5); CREATININE 3.59 mg/dL (0.60-1.30); TOTAL PROTEIN, SERUM 6.8 g/dL (6.4-8.2)
[2019-11-16 12:00] VITALS: BP 124/60
[2019-11-16] MEDS ORDERED: METO-558 PO (15:16)
[2019-11-16] MEDS ORDERED: LISI2.5T91 PO (15:16)
== END 2019-11-16 16:55 | DRG 871 ==
LOC: EMS 19:32 → 5N 21:48 → 5S 11-09 16:45
PROVIDERS: ADMIT Hospitalist; ATTEND Hospitalist
PROC: 5A1D70Z Performance of Urinary Filtration, Intermittent, Less than 6 Hours Per Day (ICD-10-PCS; 2019-11-08)
PROC: 5A09357 Assistance with Respiratory Ventilation, Less than 24 Consecutive Hours, Continuous Positive Airway Pressure (ICD-10-PCS; 2019-11-09)
PROC: 5A1D70Z Performance of Urinary Filtration, Intermittent, Less than 6 Hours Per Day (ICD-10-PCS; 2019-11-10)
PROC: 5A09357 Assistance with Respiratory Ventilation, Less than 24 Consecutive Hours, Continuous Positive Airway Pressure (ICD-10-PCS; 2019-11-10)
PROC: 5A1D70Z Performance of Urinary Filtration, Intermittent, Less than 6 Hours Per Day (ICD-10-PCS; 2019-11-12)
PROC: 0DJ08ZZ Inspection of Upper Intestinal Tract, Via Natural or Artificial Opening Endoscopic (ICD-10-PCS; 2019-11-14)
PROC: 0DJD8ZZ Inspection of Lower Intestinal Tract, Via Natural or Artificial Opening Endoscopic (ICD-10-PCS; principal; 2019-11-14 12:00)
PROC: 5A1D70Z Performance of Urinary Filtration, Intermittent, Less than 6 Hours Per Day (ICD-10-PCS; 2019-11-15)
DX: A41.9 Sepsis, unspecified organism (principal); I50.31 Acute diastolic (congestive) heart failure; N18.6 End stage renal disease; J96.02 Acute respiratory failure with hypercapnia; J96.01 Acute respiratory failure with hypoxia; I13.2 Hypertensive heart and chronic kidney disease with heart failure and with stage 5 chronic kidney disease, or end stage renal disease; J44.1 Chronic obstructive pulmonary disease with (acute) exacerbation; I48.20 Chronic atrial fibrillation, unspecified; E87.1 Hypo-osmolality and hyponatremia; J98.11 Atelectasis; E87.2 Acidosis; K57.92 Diverticulitis of intestine, part unspecified, without perforation or abscess without bleeding; J91.8 Pleural effusion in other conditions classified elsewhere; E87.5 Hyperkalemia; F03.90 Unspecified dementia, unspecified severity, without behavioral disturbance, psychotic disturbance, mood disturbance, and anxiety; R62.7 Adult failure to thrive; Z68.23 Body mass index [BMI] 23.0-23.9, adult; F20.9 Schizophrenia, unspecified; D63.1 Anemia in chronic kidney disease; D69.6 Thrombocytopenia, unspecified; E21.3 Hyperparathyroidism, unspecified; Z66 Do not resuscitate; E78.5 Hyperlipidemia, unspecified; K29.70 Gastritis, unspecified, without bleeding; Z99.2 Dependence on renal dialysis; Z83.3 Family history of diabetes mellitus; Z82.49 Family history of ischemic heart disease and other diseases of the circulatory system; Z03.818 Encounter for observation for suspected exposure to other biological agents ruled out; Z86.73 Personal history of transient ischemic attack (TIA), and cerebral infarction without residual deficits; Z79.01 Long term (current) use of anticoagulants
CPT/HCPCS: 36600; 70450; 71260; 78278; 78582; 82271; 82805; 83735; 83970; 84100; 84145; 85014; 85018; 87081; 87340; 87635; 87804; 92507; 92526; 92610; 93005; 93306; 94640; 94660; 97116; 97162; 97165; 97530; 97535; 99291; A9539; A9540; C9113; J0282; J1160; J2250; J2543; J2930; J3010; J3370; J3490; J3535; J7030; J7050; J7060

== ENCOUNTER 2019-12-01 07:40 | Emergency (ER) | payer MEDICARE, MEDICAID ==
[~2019-12-01] VITALS: Ht 149.9 cm; Wt 40.9 kg
[~2019-12-01 07:40] MED LIST changes: +ALBU8HFA IH; +APIX2.5T PO; +ASPI-556 PO; -ASPI-728 PO; +B CO1CAP6 PO; -DILT90SR PO; +DOCU-275 PO; +IPRAHFA IH; +LISI2.5T91 PO; +METO-558 PO; +PANT40TA25 PO
[2019-12-01] MEDS ORDERED: IPRAHFA IH (07:51)
[2019-12-01 08:13] LABS: GLUCOSE,POINT OF CARE 121 MG/DL (70-110)
[2019-12-01 09:38] VITALS: BP 118/81
[2019-12-01] MEDS ORDERED: ACETAMINOPHEN 325 MG TABLET PO ONE (10:00)
== END 2019-12-01 10:35 | disposition home or self-care (01) ==
LOC: EMS 07:42
DX: S09.90XA Unspecified injury of head, initial encounter (principal); I48.91 Unspecified atrial fibrillation; F20.9 Schizophrenia, unspecified; E78.00 Pure hypercholesterolemia, unspecified; I13.2 Hypertensive heart and chronic kidney disease with heart failure and with stage 5 chronic kidney disease, or end stage renal disease; E11.22 Type 2 diabetes mellitus with diabetic chronic kidney disease; N18.6 End stage renal disease; I50.9 Heart failure, unspecified; K21.9 Gastro-esophageal reflux disease without esophagitis; Z99.2 Dependence on renal dialysis; Z79.4 Long term (current) use of insulin; Z79.82 Long term (current) use of aspirin; W19.XXXA Unspecified fall, initial encounter; Y93.89 Activity, other specified; Y92.89 Other specified places as the place of occurrence of the external cause; Y99.8 Other external cause status
CPT/HCPCS: 70450; 72125